=== PATIENT | female | born 1995 | race African-American/Black ===

== ENCOUNTER 2016-07-09 08:54 | Emergency (ER) | payer OTHER ==
[~2016-07-09] VITALS: Ht 167.6 cm; Wt 71.3 kg
[2016-07-09] MEDS ORDERED: LIDOCAINE 1% / SOD BICARB 8.4% 20 ML VIAL. IJ ONE ×2 (09:45→11:30)
[2016-07-09] MEDS ORDERED: PHENYLEPHRINE 0.5% NASAL SPRAY 15ML BOTTLE. NS PRN (10:45)
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
[2016-07-09] MEDS ORDERED: LIDOCAINE/EPI/TETRACAINE TOPICAL GEL 3 ML. TP ONE (11:30)
[2016-07-09] MEDS ORDERED: NAPROXEN 250 MG TABLET PO ONE (13:00)
[2016-07-09] MEDS ORDERED: HYDROCODONE/APAP 5/325MG TABLET. PO ONE (13:30)
[2016-07-09 13:48] VITALS: BP 107/63
[2016-07-09] MEDS ORDERED: OXYC-323 PO (14:04)
[2016-07-09] MEDS ORDERED: NAPR250T2 PO (14:04)
[2016-07-09] MEDS ORDERED: AMOX1TAB61 PO (14:04)
[2016-07-09] MEDS ORDERED: AMOXICILLIN/K CLAV 875/125MG TABLET. PO ONE (14:30)
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
== END 2016-07-09 14:16 | disposition home or self-care (01) ==
LOC: ER 08:54
DX: S01.411A Laceration without foreign body of right cheek and temporomandibular area, initial encounter (principal); S01.21XA Laceration without foreign body of nose, initial encounter; S01.511A Laceration without foreign body of lip, initial encounter; S09.90XA Unspecified injury of head, initial encounter; V49.40XA Driver injured in collision with unspecified motor vehicles in traffic accident, initial encounter; Y93.I9 Activity, other involving external motion; Y92.410 Unspecified street and highway as the place of occurrence of the external cause; Y99.8 Other external cause status
CPT/HCPCS: 12011; 70450; 70486; 81025; 99284-25

== ENCOUNTER 2016-07-13 09:13 | Emergency (ER) | payer OTHER ==
[~2016-07-13] VITALS: Ht 167.6 cm; Wt 71.2 kg
[~2016-07-13 09:13] MED LIST: AMOX1TAB61 PO; NAPR250T2 PO; OXYC-323 PO
[2016-07-13 11:05] VITALS: BP 109/67
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
== END 2016-07-13 11:59 | disposition home or self-care (01) ==
LOC: ER 09:13
DX: S01.21XD Laceration without foreign body of nose, subsequent encounter (principal); X58.XXXD Exposure to other specified factors, subsequent encounter
CPT/HCPCS: 99281